=== PATIENT | male | born 1955 | race Caucasian/White ===

== ENCOUNTER → 2016-10-16 | Day surgery (SDC) | payer OTHER ==
[2016-10-15 15:39] VITALS: Ht 177.8 cm; Wt 83.4 kg
[2016-10-16] VITALS (18 sets, daily range): BP systolic 123–158; BP diastolic 57–86; PULSE 50–65; RESP 16–20
[~2016-10-16] VITALS: Ht 177.8 cm; Wt 83.4 kg
[~2016-10-16] MED LIST: ATOR10TA65 PO; BUPIVACAINE 0.25% (MPF) 10 ML 10 ML VIAL ONE; CEFAZOLIN 1 GM INJ ONE; CEFAZOLIN 2 GM/50 ML (PMX) 50 ML IVPB ONE; DEXAMETHASONE 4 MG/ML 1 ML INJ ONE; EPHEDrine SULFATE 50 MG/5 ML SYG IV PRN; FENTAnyl 50 MCG/ML VIAL IV PRN; GLYCOPYRROLATE 0.4 MG INJ ONE; HYDROCODONE/APAP (5/325) TAB PO ONE; HYDROmorphONE (0.2 MG/ML) 10ML SYG IV PRN; LABETALOL HCL 20MG INJ IV PRN; LABETALOL HCL 20MG INJ ONE; LIDOCAINE 2% (SDV) 5 ML INJ ONE; MEPERIDINE 25 MG INJ IV PRN; NEOSTIGMINE 3 MG/3 ML SYRINGE ONE; OMEP40CA6 PO; ONDANSETRON 4 MG INJ IV PRN; POLYMYXIN/BACITRACIN 1L IRRIG ONE; PROPOFOL 20 ML ONE; ROCURONIUM 50 MG INJ ONE; SOD CHLORIDE 0.9% 1,000 ML IV SCH; hydrALAzine 20 MG INJ IV PRN
--- NOTE | 2016-10-16 13:39 | OPR ---
DATE OF OPERATION: 10/16/2016 INDICATION: This is a 61-year-old male with bilateral inguinal hernias. He requests surgical repai r. Risks, alternatives, benefits, and personnel were discussed with the patient. The patient expre ssed understanding and consents to the operation. PREOPERATIVE DIAGNOSIS: Bilateral inguinal hernia. POSTOPERATIVE DIAGNOSIS: Large right sliding direct hernia and left sliding direct and incarcerated indirect inguinal hernia. OPERATION PERFORMED: Laparoscopic right sliding direct inguinal hernia and left sliding direct and incarcerated indirect inguinal hernia repair with Bard Soft Mesh x2. SURGEON: Nader Flores MD SPECIMEN: None. COMPLICATIONS: None. ANESTHESIA: General. PROCEDURE: The patient was taken to the OR and prepped and draped in the usual sterile fashion. Alonso rgical timeout was performed. IV antibiotics were given. Infraumbilical incision was made transver sely with a 15 blade. Dissection cautery was carried down to fascia which was divided with curved M ajit scissors. An 0 Vicryl U-stitch was placed into the fascia. Balloon Db trocar is introduced . Pneumoperitoneum is established. Left lower periumbilical 5 mm ports were placed x2, right lower 5 mm periumbilical ports were placed x2. Upon initial inspection, the peritoneal flaps were created on the right side. Sliding component of the direct hernia was reduced. This area was reinforced with Bard Soft Mesh with a SecureStrap. Th is was performed by securing the Bard Soft Mesh at the pubic tubercle and along the anterior superio r abdominal wall. The peritoneal flap was then reapproximated to cover the mesh completely with Sec ureStrap. The left side was addressed with formation of the peritoneal flaps with laparoscopic Harmonic. On i nitial inspection, there is was a direct and indirect component. The indirect component was incarce rated and reduced laparoscopically. The direct component was also reduced. This was repaired by cr eating straps and the Bard Soft Mesh was secured at the pubic tubercle with SecureStrap. The straps were reapproximated around the cord structures to recreate the inguinal ring. The mesh was secured along the anterior superior abdominal wall. The peritoneal flaps were reapproximated to the abdomi nal wall to cover the mesh completely with SecureStrap. The surgical sites have good hemostasis on both sides. Ports were removed under direct visualizatio n, 0 Vicryl U-stitch was tied down. Skin was closed using skin vani. Local anesthesia was injec [place]. Dry dressings were applied. Dictated By: NADER QUINTERO/FAROOQ Conf#: [id number] DID#: [id number]
== END | disposition home or self-care (01) ==
LOC: SDS 09:24
PROVIDERS: ATTEND Surgery
DX: K40.00 Bilateral inguinal hernia, with obstruction, without gangrene, not specified as recurrent (principal)
CPT/HCPCS: 49650; J0690; J1100; J1170; J2405; J2710; J3010; Z7512; Z7610